=== PATIENT | male | born 1965 | race Caucasian/White ===

== ENCOUNTER 2016-03-22 10:52 | Emergency (ER) | payer OTHER ==
[2016-03-22 10:57] VITALS: RESP 16; TEMP 97.8
--- NOTE | 2016-03-22 11:49 | XR ---
EXAMINATION TYPE: XR lumbosacral spine min 4V DATE OF EXAM: 03/22/2016 11:33 AM CLINICAL HISTORY: pain COMPARISON: NONE TECHNIQUE: Frontal, lateral, and oblique images of the lumbar spine are obtained. FINDINGS: There are 5 lumbar type vertebral bodies identified. The lumbar spine shows satisfactory alignment without evidence of acute fracture or dislocation. Vertebral body heights are within normal limits. Mild to moderate degenerative disc space narrowing and spondylosis at L1-2 and L2-3. The o verlying soft tissue appears unremarkable. IMPRESSION: No acute fracture or dislocation is seen in the lumbar spine.ICD 10 NO FRACTURE, INITIAL EVALUATION
--- NOTE | 2016-03-22 12:05 | ED ---
General Adult HPI - General Chief complaint: Back Pain/Injury Stated complaint: BACK INJURY FROM FALL Time Seen by Provider: 03/22/16 11:01 Source: patient, RN notes reviewed Mode of arrival: wheelchair Limitations: no limitations - History of Present Illness Initial comments: 50-year-old male presenting for lower back pain. Patient states he has a history of chronic back pain but it's been mostly under control for the past several months. He states yesterday he was walking down the stairs with an arm full of wood and slipped on the last stair landing with a jerk on the ground with his left leg. Since this time is back pain has been worsening. He denies any urinary incontinence. He denies any gait changes. He denies any saddle paresthesias. He denies any fall onto his back during this slip accident. - Related Data Home Medications Medication Instructions Recorded Confirmed Diazepam [Valium] 1.25 mg PO TID PRN 03/13/15 03/22/16 Ibuprofen [Advil] 400 mg PO Q6HR PRN 03/13/15 03/22/16 Previous Rx's Medication Instructions Recorded EPINEPHrine [Epipen 2-Mathieu] 0.3 mg IM ONCE PRN #1 pack 09/10/15 Diazepam [Valium] 5 mg PO BID PRN #8 tab 03/22/16 Ibuprofen [Motrin] 800 mg PO Q8HR PRN #21 tab 03/22/16 oxyCODONE-APAP 5-325MG [Percocet 1 tab PO Q6HR PRN #16 tab 03/22/16 5-325 mg] Allergies Allergy/AdvReac Type Severity Reaction Status Date / Time bee pollen Allergy Swelling Verified 03/22/16 11:53 carbamazepine [From Tegretol] Allergy Rash/Hives Verified 03/22/16 11:53 gabapentin [From Neurontin] Allergy Rash/Hives Verified 03/22/16 11:53 morphine Allergy Itching Verified 03/22/16 11:53 phenytoin sodium Allergy Rash/Hives Verified 03/22/16 11:53 [From Dilantin] phenytoin sodium extended Allergy Rash/Hives Verified 03/22/16 11:53 [From Dilantin] Review of Systems ROS Statement: Those systems with pertinent positive or pertinent negative responses have been documented in the HPI. ROS Other: All systems not noted in ROS Statement are negative. Past Medical History Past Medical History: Asthma, GERD/Reflux, Musculoskeletal Disorder, Seizure Disorder Additional Past Medical History / Comment(s): HX HEART MURMUR CHILD. HX SEIZURES IN PAST R/T HEAVY ETOH, DRUG USE, LAST 2006 EST. TOLD HE HAD ASTHMA 2000, NOT ON RX. OCC GERD. CHRONIC NECK, Back Pain; HERNIATED DISC IN NECK, DDD; NT ARMS/HANDS. HX HERPES. History of Any Multi-Drug Resistant Organisms: MRSA Date of last positivie culture/infection: 2005 MDRO Source:: Right hand Past Surgical History: Appendectomy Additional Past Surgical History / Comment(s): FACIAL REPAIR R/T DOG BITE CHILD. 03-21-16 cervical fusion Past Anesthesia/Blood Transfusion Reactions: No Reported Reaction Past Psychological History: No Psychological Hx Reported Smoking Status: Current every day smoker Past Alcohol Use History: None Reported Additional Past Alcohol Use History / Comment(s): has been SMOKING FOR 25 YEARS , UP TO 1 PPD; NO ALCOHOL SINCE 03/10/2006, RECOVERING ALCOHOLIC AND NARCOTIC ADDICTIONS. Past Drug Use History: Marijuana Additional Drug Use History / Comment(s): MEDICAL MARIJUANA FOR PAIN CONTROL, DAILY USE - Past Family History Father Family Medical History: Diabetes Mellitus Mother Family Medical History: No Reported History Additional Family Medical History / Comment(s): TREMORS General Exam - General Exam Comments Initial Comments: General: Awake and Alert. No acute distress. Does not appear acutely ill. Eyes: LEE ANN, EOM intact. No nystagmus. No scleral icterus. HENT: Atraumatic, normocephalic. Mucous membranes moist. Trachea midline. Neck: The neck is supple, there is no tenderness or JVD. Cardiovascular: Regular rate and rhythm. No murmur, rub, or gallop is appreciated. Distal pulses intact. Respiratory: Lungs are clear to auscultation bilaterally. No wheezes, rales, rhonchi. No respiratory distress. Gastrointestinal: Soft, Nontender. No rebound or guarding. Non-distended. No masses or organomegaly noted. No CVA tenderness. Musculoskeletal: Tenderness to the mid lower back on the L5-S1 area. No significant spasm noted. Otherwise, skin exam with no tenderness. Normal ROM. No gross deformity. No strength deficits. Neurological: A&Ox3. CN II-XII grossly intact, There are no obvious motor or sensory deficits. Coordination appears grossly intact. Speech is normal. Normal gait. No saddle paresthesias. Skin: Skin is warm and dry and no rashes or lesions are noted. Psychiatric: Cooperative, appropriate mood & affect, normal judgment. Limitations: no limitations Course Vital Signs 03/22/16 03/22/16 10:54 12:21 Temperature 97.8 F 97.8 F Pulse Rate 78 79 Respiratory 16 16 Rate Blood Pressure 114/67 128/78 O2 Sat by Pulse 100 97 Oximetry Medical Decision Making - Medical Decision Making 50-year-old male presenting for low back pain. Patient with mild tenderness on examination. There are no signs and symptoms of acute cord compression or cauda equina syndrome. He was able to ambulate normally. He was offered pain medications but declines the ED. X-ray imaging was done with no acute process. Discussed close follow-up with Dr. Cartagena or Dr. Zhang who he has seen on an outpatient basis before. Discussed conservative therapy with pain medication as well as muscle relaxers. Recommend heat and stretching. Discussed concerning signs and symptoms for immediate return to ED. Patient is agreeable with plan and discharge home. - Radiology Data Radiology results: report reviewed, image reviewed Disposition Clinical Impression: Low back pain Disposition: HOME SELF-CARE Condition: Stable Instructions: Acute Low Back Pain (ED) Prescriptions: Diazepam [Valium] 5 mg PO BID PRN #8 tab PRN Reason: back spasm Ibuprofen [Motrin] 800 mg PO Q8HR PRN #21 tab PRN Reason: Pain oxyCODONE-APAP 5-325MG [Percocet 5-325 mg] 1 tab PO Q6HR PRN #16 tab PRN Reason: Pain Referrals: Kateryna Ricks MD [Primary Care Provider] - 1-2 days Michael Cartagena MD [STAFF PHYSICIAN] - 1-2 days Devon Zhang DO [Doctor of Osteopathic Medicine] - 1-2 days Time of Disposition: 12:04
[2016-03-22 12:22] VITALS: BP 128/78; PULSE 79
== END 2016-03-22 12:21 | disposition home or self-care (01) ==
LOC: EC 10:52
DX: M54.5 Low back pain (principal); W01.0XXA Fall on same level from slipping, tripping and stumbling without subsequent striking against object, initial encounter; Z79.899 Other long term (current) drug therapy; F17.200 Nicotine dependence, unspecified, uncomplicated; Z86.14 Personal history of Methicillin resistant Staphylococcus aureus infection; Z88.8 Allergy status to other drugs, medicaments and biological substances; Z88.5 Allergy status to narcotic agent
CPT/HCPCS: 72110; 99283

== ENCOUNTER → 2016-04-16 | Outpatient (CLI) | payer OTHER ==
--- NOTE | 2016-04-16 11:04 | MR ---
EXAMINATION TYPE: MR lumbar spine wo con DATE OF EXAM: 04/16/2016 10:28 AM COMPARISON: 10/15/2010 HISTORY: Lumbago w/sciatica lt side TECHNIQUE: T1 and T2 axial and sagittal images of the lumbar spine are submitted. FINDINGS: There is no abnormal signal seen within the visualized spinal cord or paraspinal soft tissu es. At L1-2 there is there is loss of disc space and a small central disc protrusion with mild effacement of thecal sac. Mild hypertrophic change of the facets. Neural foramina remain patent. Finding new fr om previous exam. At L2-3 there is moderate degenerative disc disease. There is a broad-based focal disc protrusion wit h moderate effacement of thecal sac and borderline canal stenosis. Hypertrophy of the facet joints an d ligamentum flavum contribute. Mild bilateral foraminal encroachment. At L3-4 there is no disc herniation or canal stenosis. Mild hypertrophic change of the facet joints. Circumferential disc bulging results in mild foraminal encroachment bilaterally. At L4-5 there is moderate degenerative disc disease with a broad-based right paracentral and lateral disc herniation. This results in moderate effacement of thecal sac and significant right-sided forami nal encroachment with probable nerve root impingement. Mild canal stenosis. At L5-S1 there is degenerative disc disease and annular tear with broad-based central disc bulging gr eater laterally to the right. Mild bilateral foraminal encroachment. IMPRESSION: 1. Broad-based right paracentral disc herniation extends laterally with significant compression of th ecal sac and right-sided foraminal encroachment with probable nerve root impingement. 2. New central disc protrusion at L1-L2 with mild effacement of thecal sac. 3. Multilevel degenerative disc disease and remaining disc bulging or protrusions are stable from the previous exam with foraminal encroachment as discussed above.
== END | disposition home or self-care (01) ==
LOC: RADMRIMAIN 09:38
PROVIDERS: ATTEND Family Medicine
DX: M51.26 Other intervertebral disc displacement, lumbar region (principal); M51.36 Other intervertebral disc degeneration, lumbar region
CPT/HCPCS: 72148

== ENCOUNTER 2016-10-25 10:25 | Emergency (ER) | payer OTHER ==
--- NOTE | 2016-10-25 10:48 | ED ---
General Adult HPI - General Chief complaint: Chest Pain Stated complaint: chest pain Time Seen by Provider: 10/25/16 10:30 Source: patient, RN notes reviewed Mode of arrival: wheelchair Limitations: no limitations - History of Present Illness Initial comments: This is a 50-year-old male who presents emergency Department complaining of left upper back pain. Patient states it occurred about a week and a half ago when he bent over he states he strained the muscles in that area. Patient states ever since then any pain bent his twists or moves that area of his back just medial to the left scapula it hurts. Patient states that someone presses on it it hurts. Patient denies any shortness of breath patient denies any chest pain. Patient states the back pain radiates forward towards his chest but he has no actual chest pain. Patient denies any recent fever chills or cough. Patient denies diabetes hypertension high cholesterol. Patient states he is a smoker. Patient states he does have multiple back issues and smokes marijuana to help with the pain. Patient denies any other symptoms at this time. - Related Data Home Medications Medication Instructions Recorded Confirmed Diazepam [Valium] 1.25 mg PO TID PRN 03/13/15 03/22/16 Ibuprofen [Advil] 400 mg PO Q6HR PRN 03/13/15 03/22/16 Previous Rx's Medication Instructions Recorded EPINEPHrine [Epipen 2-Mathieu] 0.3 mg IM ONCE PRN #1 pack 09/10/15 Diazepam [Valium] 5 mg PO BID PRN #8 tab 03/22/16 Ibuprofen [Motrin] 800 mg PO Q8HR PRN #21 tab 03/22/16 oxyCODONE-APAP 5-325MG [Percocet 1 tab PO Q6HR PRN #16 tab 03/22/16 5-325 mg] Allergies Allergy/AdvReac Type Severity Reaction Status Date / Time bee pollen Allergy Swelling Verified 10/25/16 10:30 carbamazepine [From Tegretol] Allergy Rash/Hives Verified 10/25/16 10:30 gabapentin [From Neurontin] Allergy Rash/Hives Verified 10/25/16 10:30 morphine Allergy Itching Verified 10/25/16 10:30 phenytoin sodium Allergy Rash/Hives Verified 10/25/16 10:30 [From Dilantin] phenytoin sodium extended Allergy Rash/Hives Verified 10/25/16 10:30 [From Dilantin] Review of Systems ROS Statement: Those systems with pertinent positive or pertinent negative responses have been documented in the HPI. ROS Other: All systems not noted in ROS Statement are negative. Past Medical History Past Medical History: Asthma, GERD/Reflux, Musculoskeletal Disorder, Seizure Disorder Additional Past Medical History / Comment(s): HX HEART MURMUR CHILD. HX SEIZURES IN PAST R/T HEAVY ETOH, DRUG USE, LAST 2006 EST. TOLD HE HAD ASTHMA 2000, NOT ON RX. OCC GERD. CHRONIC NECK, Back Pain; HERNIATED DISC IN NECK, DDD; NT ARMS/HANDS. HX HERPES. History of Any Multi-Drug Resistant Organisms: MRSA Date of last positivie culture/infection: 2005 MDRO Source:: Right hand Past Surgical History: Appendectomy Additional Past Surgical History / Comment(s): FACIAL REPAIR R/T DOG BITE CHILD. 18 cervical fusion Past Anesthesia/Blood Transfusion Reactions: No Reported Reaction Past Psychological History: No Psychological Hx Reported Smoking Status: Current every day smoker Past Alcohol Use History: None Reported Past Drug Use History: Marijuana - Past Family History Father Family Medical History: Diabetes Mellitus Mother Family Medical History: No Reported History Additional Family Medical History / Comment(s): TREMORS General Exam - General Exam Comments Initial Comments: GENERAL: Patient is well-developed and well-nourished. Patient is nontoxic and well- hydrated and is in mild distress. ENT: Neck is soft and supple. No significant lymphadenopathy is noted. Oropharynx is clear. Moist mucous membranes. Neck has full range of motion without eliciting any pain. EYES: The sclera were anicteric and conjunctiva were pink and moist. Extraocular movements were intact and pupils were equal round and reactive to light. Eyelids were unremarkable. PULMONARY: Unlabored respirations. Good breath sounds bilaterally. No audible rales rhonchi or wheezing was noted. CARDIOVASCULAR: There is a regular rate and rhythm without any murmurs gallops or rubs. ABDOMEN: Soft and nontender with normal bowel sounds. No palpable organomegaly was noted. There is no palpable pulsatile mass. SKIN: Skin is clear with no lesions or rashes and otherwise unremarkable. NEUROLOGIC: Patient is alert and oriented x3. Cranial nerves II through XII are grossly intact. Motor and sensory are also intact. Normal speech, volume and content. Symmetrical smile. MUSCULOSKELETAL: Normal extremities with adequate strength and full range of motion. No lower extremity swelling or edema. No calf tenderness. Patient has tenderness just medial to the left scapula on palpation. Patient can make the pain come and go with movement LYMPHATICS: No significant lymphadenopathy is note PSYCHIATRIC: Normal psychiatric evaluation. Limitations: no limitations Course Vital Signs 10/25/16 10:27 Temperature 98.1 F Pulse Rate 67 Respiratory 18 Rate Blood Pressure 142/66 O2 Sat by Pulse 99 Oximetry Medical Decision Making - Medical Decision Making EKG shows a normal sinus rhythm at 61 bpm GA interval is on a 58 QRS is 92 QT interval 394 QTC is 398. Patient's EKG is compared to an old EKG there are no acute changes noted. Patient's EKG shows no ST segment elevation or depression or T wave abnormalities. I offered the patient some Toradol or muscle relaxants he does not want to take any medicines while in the hospital at all. Chest x-ray shows no acute abnormality Disposition Clinical Impression: Thoracic myofascial strain Disposition: HOME SELF-CARE Condition: Good Instructions: Thoracic Back Strain (ED) Additional Instructions: Patient's take Motrin 600 mg every 6 hours Referrals: Kateryna Ricks MD [Primary Care Provider] - 1-2 days Time of Disposition: 11:24
--- NOTE | 2016-10-25 11:07 | XR ---
EXAMINATION TYPE: XR chest 2V DATE OF EXAM: 10/25/2016 HISTORY: Difficulty breathing . REFERENCE: Previous study dated 10/11/2014. FINDINGS: The lungs are overinflated but clear. Pleural space are clear. The heart is not enlarged. IMPRESSION: COPD.
[2016-10-25 11:33] VITALS: BP 117/57; PULSE 59; RESP 16; TEMP 98.8
== END 2016-10-25 11:32 | disposition home or self-care (01) ==
LOC: EC 10:25
DX: S29.012A Strain of muscle and tendon of back wall of thorax, initial encounter (principal); G89.29 Other chronic pain; F17.200 Nicotine dependence, unspecified, uncomplicated; Z86.14 Personal history of Methicillin resistant Staphylococcus aureus infection; Z91.030 Bee allergy status; Z88.5 Allergy status to narcotic agent; Z88.8 Allergy status to other drugs, medicaments and biological substances; X50.1XXA Overexertion from prolonged static or awkward postures, initial encounter
CPT/HCPCS: 71020; 99285

== ENCOUNTER → 2017-03-06 | Outpatient (CLI) | payer OTHER ==
--- NOTE | 2017-03-06 11:20 | XR ---
Thoracic spine HISTORY: Pain 3 views of the thoracic spine Postop changes are noted in the cervical spine. There is a mild spinal curvature the upper thoracic s pine. Thoracic vertebral bodies show preserved height and alignment. Multilevel spondylosis. Disc [facility] are maintained. IMPRESSION: Thoracic spondylosis, mild spinal curvature.
--- NOTE | 2017-03-06 12:29 | XR ---
Cervical spine HISTORY: Neck pain 5 views of the cervical spine Patient is status post anterior cervical fusion and discectomy at C5-C7. Spondylosis present at C4-5 with associated loss of disc height. Alignment is anatomic. Suspect foraminal encroachment at C5-6 an d possibly C6-7, C3-4 bilaterally. IMPRESSION: Degenerative disc disease and foraminal encroachment as described.
== END | disposition home or self-care (01) ==
LOC: RADXRMAIN 10:19
PROVIDERS: ATTEND Family Medicine
DX: M50.30 Other cervical disc degeneration, unspecified cervical region (principal); M47.814 Spondylosis without myelopathy or radiculopathy, thoracic region
CPT/HCPCS: 72050; 72070

== ENCOUNTER → 2017-04-24 | Outpatient (CLI) | payer OTHER ==
--- NOTE | 2017-04-24 14:08 | CT ---
EXAMINATION TYPE: CT abdomen pelvis w con DATE OF EXAM: 04/24/2017 COMPARISON: NONE HISTORY: Stomach pain since January CT DLP: 933 mGycm Automated exposure control for dose reduction was used. CONTRAST: CT scan of the abdomen pelvis is performed with IV Contrast, patient injected with 100 mL of Omnipaqu e 300. FINDINGS- LUNG BASES- No significant abnormality is appreciated. LIVER/GB- No gross abnormality is appreciated. PANCREAS- No gross abnormality is seen. SPLEEN- No gross abnormality is seen. ADRENALS- No gross abnormality is seen. KIDNEYS/BLADDER- no hydronephrosis nephrolithiasis or renal mass. BOWEL- no bowel dilatation. There is a somewhat low-lying position of the small bowel within the low er pelvis. Correlate for enterocele. LYMPH NODES- No greater than 1cm abdominal or pelvic lymph nodes are appreciated. OSSEOUS STRUCTURES-hypertrophic changes of the spine noted. There is disc bulging at L4-L5 and facet arthropathy which likely results in canal stenosis and could be correlated with MRI. OTHER- aorta of normal caliber. IMPRESSION- 1. Small bowel somewhat low-lying in position within the pelvis can occasionally be associated with a n enterocele. Correlate clinically. No evidence of obstruction.
== END | disposition home or self-care (01) ==
LOC: RADCTMAIN 11:58
PROVIDERS: ATTEND Family Medicine
DX: K46.9 Unspecified abdominal hernia without obstruction or gangrene (principal); R53.83 Other fatigue
CPT/HCPCS: 74177; Q9967

== ENCOUNTER → 2017-11-12 | Outpatient (CLI) | payer OTHER ==
--- NOTE | 2017-11-12 16:33 | US ---
EXAMINATION TYPE: US abdomen complete DATE OF EXAM: 11/12/2017 COMPARISON: NONE CLINICAL HISTORY: R19.00 ABD WALL BULGE,R10.11 RUQ PAIN. Technique: Multiple sonographic images of the abdomen are obtained. FINDINGS: [employer] Technician notes: During gardening pt felt a bulge in epigastric area but not now, I performed valsa lva maneuver over pt area of concern. No bulging seen. The area was over his GB. EXAM MEASUREMENTS: Liver Length: 15.1 cm Gallbladder Wall: 0.1 cm CBD: 0.2 cm Spleen: 8.1 cm Right Kidney: 10.9 x 4.0 x 4.9 cm Left Kidney: 10.3 x 4.4 x 5.5 cm Pancreas: Obscured by bowel gas Liver: wnl Gallbladder: wnl Evidence for sonographic Kimball's sign: No CBD: wnl Spleen: wnl Right Kidney: wnl Left Kidney: wnl Upper IVC: wnl Abd Aorta: wnl IMPRESSION: 1. Suboptimal visualization of the pancreas. Otherwise, unremarkable sonographic examination of the a bdomen. 2. Additional scanning was performed at the right paramedian upper abdomen at the site of patient's r eported bulge. Valsalva was utilized and shows no discrete abdominal wall hernia. Further clinical co rrelation recommended.
== END | disposition home or self-care (01) ==
LOC: RADUSWWP 10:52
PROVIDERS: ATTEND Family Medicine
DX: R19.00 Intra-abdominal and pelvic swelling, mass and lump, unspecified site (principal); R10.11 Right upper quadrant pain
CPT/HCPCS: 76700

== ENCOUNTER → 2018-03-05 | Outpatient (CLI) | payer OTHER ==
--- NOTE | 2018-03-05 11:53 | MR ---
EXAMINATION TYPE: MR brain wo con DATE OF EXAM: 03/05/2018 COMPARISON: None HISTORY: Dizziness and giddiness / Headache CONTRAST: Performed utilizing 0 mL intravenous Gadavist gadolinium contrast. TECHNIQUE: Multiplanar, multiecho imaging on a 3.0 Lila magnet is performed through the brain. Stud y is performed within 24 hours of arrival to the hospital. The craniovertebral junction is normal. The pituitary is normal. Diffusion-weighted imaging is performed. No abnormal hyperintensity is present to suggest an acute i ntracranial infarct or acute ischemic change. There are 3 hyperintensities on inversion recovery weighted sequences within the centrum semiovale me asuring approximately 0.4 cm each. Couple of additional carson radiata hyperintensities are present. Differential diagnosis could include microvascular ischemic change. Multiple sclerosis is not exclude d. Differential diagnosis could also include gliosis from migraine headaches, vasculitis, Lyme diseas e. Ventricles and sulci are appropriate for the patient age. There is a mucous retention cyst within the left maxillary sinus. Tiny mucous thickening along the ri ght posterior lateral maxillary sinus may be present. Small amount of fluid is in the right mastoid a ir cells. Mild mucosal thickening is within ethmoid air cells and right frontal sinus. IMPRESSIONS: 1. Nonspecific punctate white matter changes, differential diagnosis is discussed above.
--- NOTE | 2018-03-05 15:01 | US ---
EXAMINATION TYPE: US carotid duplex BILAT DATE OF EXAM: 03/05/2018 COMPARISON: NONE CLINICAL HISTORY: R42 Dizziness and giddiness / R51 Headache. dizziness, no HTN, no hx of tia EXAM MEASUREMENTS: RIGHT: Peak Systolic Velocity (PSV) cm/sec ----- Right CCA: 83.4 ----- Right ICA: 65.8 ----- Right ECA: 71.3 ICA/CCA ratio: 0.8 RIGHT: End Diastole cm/sec ----- Right CCA: 21.9 ----- Right ICA: 23.0 ----- Right ECA: 15.3 LEFT: Peak Systolic Velocity (PSV) cm/sec ----- Left CCA: 117.3 ----- Left ICA: 67.6 ----- Left ECA: 97.8 ICA/CCA ratio: 0.6 LEFT: End Diastole cm/sec ----- Left CCA: 31.8 ----- Left ICA: 22.3 ----- Left ECA: 15.0 VERTEBRALS (direction of flow): Right Vertebral: Antegrade Left Vertebral: Antegrade Rhythm: Normal No elevated velocities, significant stenosis, plaque or wall thickening. IMPRESSION: 1. No significant flow-limiting stenosis Criteria for Assigning % of Stenosis / Diameter reduction (Estimation based on the indirect measurements of the internal carotid artery velocities (ICA PSV). 1. Normal (no stenosis)=ICA PSV < 125 cm/s: ratio < 2.0: ICA EDV<40 cm/s. 2. Less than 50% stenosis=ICA PSV < 125 cm/s: ratio < 2.0: ICA EDV<40 cm/s. 3. 50 to 69% stenosis=ICA PSV of 125 to 230 cm/s: ration 2.0 ? 4.0: ICA EDV 40-100 cm/s. 4. Greater than 70% stenosis to near occlusion= ICA PSV > 230 cm/s: ratio > 4.0: ICA EDV > 100 cm/s. 5. Near occlusion= ICA PSV velocities may be low or undetectable: variable ratio and ICA EDV. 6. Total occlusion=unable to detect flow.
== END | disposition home or self-care (01) ==
LOC: RADMRIMAIN 06:08
PROVIDERS: ATTEND Family Medicine
DX: R90.89 Other abnormal findings on diagnostic imaging of central nervous system (principal); R42 Dizziness and giddiness; R51 Headache
CPT/HCPCS: 70551; 93880

== ENCOUNTER → 2018-05-13 | Outpatient (CLI) | payer OTHER ==
--- NOTE | 2018-05-13 08:36 | CT ---
EXAMINATION TYPE: CT sinus wo con DATE OF EXAM: 05/13/2018 COMPARISON: HISTORY: 52-year-old male Chronic sinusitis, left side worse CT DLP: 615.9 mGycm Automated exposure control for dose reduction was used. TECHNIQUE: Noncontrast axial views of the paranasal sinuses were obtained. Coronal reconstructions pe rformed. FINDINGS: PARANASAL SINUSES: There is a large 2.7 cm lobulated polyp or mucosal retention cyst along the floor of the maxillary si nus. Scattered trace mucosal thickening within the bilateral maxillary sinuses are otherwise seen. Scattered mild mucosal thickening bilateral ethmoid air cells and right sphenoid sinus as well as the right frontal sinus. There is no air-fluid level. Reactive javi- osteogenesis is not seen. There is no destruction of the osseous kellogg of the paranasal sinuses. THE NASAL CAVITY: The osteomeatal complexes are patent. The nasal septum is not significantly deviated. The imaged brain and orbits are normal in appearance. Visualized mastoid air cells and middle ear cavities are well pneumatized. Reformatted images confirm above findings. IMPRESSION: 1. Mild chronic maxillary and ethmoid sinus disease. Additional mild mucosal thickening involves the right frontal and right sphenoid sinuses. 2. A 2.7 cm lobulated polyp or mucosal retention cyst along the floor of the left maxillary sinus.
== END | disposition home or self-care (01) ==
LOC: RADCTMAIN 07:58
PROVIDERS: ATTEND Otolaryngology
DX: J33.8 Other polyp of sinus (principal); J34.89 Other specified disorders of nose and nasal sinuses; J32.9 Chronic sinusitis, unspecified
CPT/HCPCS: 70486

== ENCOUNTER 2023-09-13 11:10 | Observation (INO) | payer OTHER ==
[2023-09-13 11:46] LABS: Basophils % (A) 1 %; Eosinophils # (A) 0.2 k/uL (0-0.7); Eosinophils % (A) 5 %; HCT 46.4 % (39.0-53.0); HGB 15.1 gm/dL (13.0-17.5); Lymphocytes # (A) 0.9 k/uL (1.0-4.8); Lymphocytes % (A) 30 %; MCH 33.5 pg (25.0-35.0); MCHC 32.5 g/dL (31.0-37.0); MCV 102.9 fL (80.0-100.0); Mean Platelet Volume 13.9; Monocytes # (A) 0.2 k/uL (0-1.0); Monocytes % (A) 5 %; Neutrophils # (A) 1.8 k/uL (1.3-7.7); Neutrophils % (A) 58 %; Platelet Count 119 k/uL (150-450); RBC 4.51 m/uL (4.30-5.90); RDW 11.8 % (11.5-15.5); WBC 3.1 k/uL (3.8-10.6)
[2023-09-13 11:58] LABS: INR 1.2 (<1.2); Partial Thromboplastin Time 27.2 sec (22.0-30.0)
[2023-09-13 11:59] LABS: ALT 15 U/L (4-49); AST 23 U/L (17-59); African American GFR (CKD) >90 (>60 ml/min/1.73 sqM); Albumin 4.6 g/dL (3.5-5.0); Alkaline Phosphatase 70 U/L (38-126); Anion Gap 8 mmol/L; Blood Urea Nitrogen 12 mg/dL (9-20); Calcium 9.6 mg/dL (8.4-10.2); Carbon Dioxide 26 mmol/L (22-30); Chloride 103 mmol/L (98-107); Glucose 175 mg/dL (74-99); Magnesium 1.8 mg/dL (1.6-2.3); Non-African American GFR(CKD) >90 (>60 ml/min/1.73 sqM); Potassium 4.2 mmol/L (3.5-5.1); Sodium 137 mmol/L (137-145); Total Bilirubin 1.2 mg/dL (0.2-1.3); Total Protein 6.8 g/dL (6.3-8.2)
--- NOTE | 2023-09-13 12:22 | XR ---
EXAMINATION TYPE: XR chest 2V DATE OF EXAM: 09/13/2023 COMPARISON: 02/21/2018 HISTORY: Chest pain TECHNIQUE: Frontal and lateral views of the chest are obtained. FINDINGS: There is no focal air space opacity, pleural effusion, or pneumothorax seen. The cardiac silhouette size is within normal limits. The osseous structures are intact. IMPRESSION: No acute cardiopulmonary process.
--- NOTE | 2023-09-13 12:32 | ED ---
General Adult HPI - General Chief complaint: Chest Pain Stated complaint: Chest Pains Time Seen by Provider: 09/13/23 12:14 Source: patient, family, RN notes reviewed Mode of arrival: wheelchair Limitations: no limitations - History of Present Illness Initial comments: Patient is a 57-year-old male present to the emergency department with concerns with chest discomfort. Onset of symptoms was 2 to 3 days ago. Patient is having chest tightness with associated mild dyspnea and nausea. Patient has also had some lightheadedness. No history of similar symptoms previously. Discomfort is mid to lower sternal. Discomfort at this time is mild. - Related Data Home Medications Medication Instructions Recorded Confirmed Acetaminophen [Tylenol Extra 500 mg PO Q6HR PRN 02/21/18 02/21/18 Strength] Ranitidine HCl [Zantac] 150 mg PO BID PRN 02/21/18 02/21/18 Allergies Allergy/AdvReac Type Severity Reaction Status Date / Time bee pollen Allergy Swelling Verified 09/13/23 11:21 carbamazepine [From Tegretol] Allergy Rash/Hives Verified 09/13/23 11:21 gabapentin [From Neurontin] Allergy Rash/Hives Verified 09/13/23 11:21 morphine Allergy Itching Verified 09/13/23 11:21 phenytoin sodium Allergy Rash/Hives Verified 09/13/23 11:21 [From Dilantin] phenytoin sodium extended Allergy Rash/Hives Verified 09/13/23 11:21 [From Dilantin] Review of Systems ROS Statement: Those systems with pertinent positive or pertinent negative responses have been documented in the HPI. ROS Other: All systems not noted in ROS Statement are negative. Constitutional: Denies: fever Eyes: Denies: eye pain ENT: Denies: ear pain Respiratory: Denies: cough Cardiovascular: Reports: as per HPI, chest pain Endocrine: Reports: fatigue Gastrointestinal: Denies: abdominal pain Musculoskeletal: Denies: back pain Past Medical History Past Medical History: Asthma, GERD/Reflux, Musculoskeletal Disorder, Seizure Disorder Additional Past Medical History / Comment(s): HX HEART MURMUR CHILD. HX SEIZURES IN PAST R/T HEAVY ETOH, DRUG USE, LAST 2006 EST. TOLD HE HAD ASTHMA 2000, NOT ON RX. OCC GERD. CHRONIC NECK, Back Pain; HERNIATED DISC IN NECK, DDD; NT ARMS/HANDS. HX HERPES. History of Any Multi-Drug Resistant Organisms: MRSA Date of last positivie culture/infection: 2005 MDRO Source:: Right hand Past Surgical History: Appendectomy Additional Past Surgical History / Comment(s): FACIAL REPAIR R/T DOG BITE CHILD. 03-21-15 cervical fusion Past Anesthesia/Blood Transfusion Reactions: No Reported Reaction Past Psychological History: No Psychological Hx Reported Smoking Status: Current every day smoker Past Alcohol Use History: None Reported Past Drug Use History: Marijuana - Past Family History Father Family Medical History: Diabetes Mellitus Mother Family Medical History: No Reported History Additional Family Medical History / Comment(s): . General Exam Limitations: no limitations General appearance: alert, in no apparent distress Head exam: Present: normocephalic Eye exam: Present: normal appearance Neck exam: Present: normal inspection Respiratory exam: Present: normal lung sounds bilaterally Cardiovascular Exam: Present: regular rate, normal rhythm Expanded Peripheral pulses: 2+: Radial (R), Radial (L), Dorsalis Pedis (R), Dorsalis Pedis (L) GI/Abdominal exam: Present: soft. Absent: tenderness Extremities exam: Present: normal inspection. Absent: pedal edema, calf tenderness Neurological exam: Present: alert Psychiatric exam: Present: normal affect, normal mood Skin exam: Present: normal color Course Vital Signs 09/13/23 11:17 Temperature 97.3 F L Pulse Rate 93 Respiratory 18 Rate Blood Pressure 136/70 O2 Sat by Pulse 100 Oximetry EKG Findings - EKG Results: EKG: interpreted by ERMD, sinus rhythm, normal axis, normal QRS, normal ST/T Medical Decision Making - Medical Decision Making Was pt. sent in by a medical professional or institution (, PA, QUALITY CONTROL INSPECTOR, urgent care, hospital, or detention...) When possible be specific @ -No Did you speak to anyone other than the patient for history (EMS, parent, family, police, friend...)? What history was obtained from this source @ -No Did you review nursing and triage notes (agree or disagree)? Why? @ -I reviewed and agree with nursing and triage notes Were old charts reviewed (outside hosp., previous admission, EMS record, old EKG, old radiological studies, urgent care reports/EKG's, detention records)? Report findings @ -No old charts were reviewed Differential Diagnosis (chest pain, altered mental status, abdominal pain women, abdominal pain men, vaginal bleeding, weakness, fever, dyspnea, syncope, headache, dizziness, GI bleed, back pain, seizure, CVA, palpatations, mental health, musculoskeletal)? @ -Differential Chest Pain: Stable Angina, Unstable Angina, STEMI, NSTEMI Aortic Dissection, Pneumothorax, Musculoskeletal, Esophageal Spasm GERD, Cholecystitis, Pancreatitis, Zoster, this is not meant to be an all-inclusive list. EKG interpreted by me (3pts min.). @ -As above X-rays interpreted by me (1pt min.). @ -Chest x-ray shows no acute process CT interpreted by me (1pt min.). @ -None done U/S interpreted by me (1pt. min.). @ -None done What testing was considered but not performed or refused? (CT, X-rays, U/S, labs)? Why? @ -None What meds were considered but not given or refused? Why? @ -None Did you discuss the management of the patient with other professionals (professionals i.e. , PA, QUALITY CONTROL INSPECTOR, lab, RT, psych nurse, social media campaign manager, restaurant hourly manager, teacher, quality officer, employment case manager)? Give summary @ -Case discussed with Dr. Valera who will admit covering Dr. Elaine Was smoking cessation discussed for >3mins.? @ -No Was critical care preformed (if so, how long)? @ -No Were there social determinants of health that impacted care today? How? (Homelessness, low income, unemployed, alcoholism, drug addiction, transportation, low edu. Level, literacy, decrease access to med. care, senior living, rehab)? @ -No Was there de-escalation of care discussed even if they declined (Discuss DNR or withdrawal of care, Hospice)? DNR status @ -No What co-morbidities impacted this encounter? (DM, HTN, Smoking, COPD, CAD, Canc er, CVA, ARF, Chemo, Hep., AIDS, mental health diagnosis, sleep apnea, morbid obesity)? @ -None Was patient admitted / discharged? Hospital course, mention meds given and route, prescriptions, significant lab abnormalities, going to OR and other pertinent info. @ -Patient presents with chest discomfort. Patient and family updated on results and plan. Patient reevaluated with only minimal symptoms. Patient does have mild bump in lipase. Patient will be admitted with cardiac consult. Lipase will be rechecked. Undiagnosed new problem with uncertain prognosis? @ -No Drug Therapy requiring intensive monitoring for toxicity (Heparin, Nitro, Insulin, Cardizem)? @ -No Were any procedures done? @ -No Diagnosis/symptom? @ -Chest pain Acute, or Chronic, or Acute on Chronic? @ -Acute Uncomplicated (without systemic symptoms) or Complicated (systemic symptoms)? @ -Default Side effects of treatment? @ -No Exacerbation, Progression, or Severe Exacerbation? @ -No Poses a threat to life or bodily function? How? (Chest pain, [place], [place], pneumonia, PE, COPD, DKA, ARF, appy, cholecystitis, CVA, Diverticulitis, Homicidal, Suicidal, threat to staff... and all critical care pts) @ -Threat to cardiac function - Lab Data Result diagrams: 09/13/23 11:31 09/13/23 11:31 Lab Results 09/13/23 09/13/23 09/13/23 Range/Units 11:31 11:31 11:31 WBC 3.1 L (3.8-10.6) k/uL RBC 4.51 (4.30-5.90) m/uL Hgb 15.1 (13.0-17.5) gm/dL Hct 46.4 (39.0-53.0) % MCV 102.9 H (80.0-100.0) fL MCH 33.5 (25.0-35.0) pg MCHC 32.5 (31.0-37.0) g/dL RDW 11.8 (11.5-15.5) % Plt Count 119 L (150-450) k/uL MPV 13.9 Neutrophils % 58 % Lymphocytes % 30 % Monocytes % 5 % Eosinophils % 5 % Basophils % 1 % Neutrophils # 1.8 (1.3-7.7) k/uL Lymphocytes # 0.9 L (1.0-4.8) k/uL Monocytes # 0.2 (0-1.0) k/uL Eosinophils # 0.2 (0-0.7) k/uL Basophils # 0.0 (0-0.2) k/uL PT 13.0 H (10.0-12.5) sec INR 1.2 H (<1.2) APTT 27.2 (22.0-30.0) sec Sodium 137 (137-145) mmol/L Potassium 4.2 (3.5-5.1) mmol/L Chloride 103 (98-107) mmol/L Carbon Dioxide 26 (22-30) mmol/L Anion Gap 8 mmol/L BUN 12 (9-20) mg/dL Creatinine 0.76 (0.66-1.25) mg/dL Est GFR (CKD-EPI)AfAm >90 (>60 ml/min/1.73 sqM) Est GFR (CKD-EPI)NonAf >90 (>60 ml/min/1.73 sqM) Glucose 175 H (74-99) mg/dL Calcium 9.6 (8.4-10.2) mg/dL Magnesium 1.8 (1.6-2.3) mg/dL Total Bilirubin 1.2 (0.2-1.3) mg/dL AST 23 (17-59) U/L ALT 15 (4-49) U/L Alkaline Phosphatase 70 (38-126) U/L Troponin I (0.000-0.034) ng/mL Total Protein 6.8 (6.3-8.2) g/dL Albumin 4.6 (3.5-5.0) g/dL Amylase (30-110) U/L Lipase (23-300) U/L 09/13/23 09/13/23 Range/Units 11:31 11:39 WBC (3.8-10.6) k/uL RBC (4.30-5.90) m/uL Hgb (13.0-17.5) gm/dL Hct (39.0-53.0) % MCV (80.0-100.0) fL MCH (25.0-35.0) pg MCHC (31.0-37.0) g/dL RDW (11.5-15.5) % Plt Count (150-450) k/uL MPV Neutrophils % % Lymphocytes % % Monocytes % % Eosinophils % % Basophils % % Neutrophils # (1.3-7.7) k/uL Lymphocytes # (1.0-4.8) k/uL Monocytes # (0-1.0) k/uL Eosinophils # (0-0.7) k/uL Basophils # (0-0.2) k/uL PT (10.0-12.5) sec INR (<1.2) APTT (22.0-30.0) sec Sodium (137-145) mmol/L Potassium (3.5-5.1) mmol/L Chloride (98-107) mmol/L Carbon Dioxide (22-30) mmol/L Anion Gap mmol/L BUN (9-20) mg/dL Creatinine (0.66-1.25) mg/dL Est GFR (CKD-EPI)AfAm (>60 ml/min/1.73 sqM) Est GFR (CKD-EPI)NonAf (>60 ml/min/1.73 sqM) Glucose (74-99) mg/dL Calcium (8.4-10.2) mg/dL Magnesium (1.6-2.3) mg/dL Total Bilirubin (0.2-1.3) mg/dL AST (17-59) U/L ALT (4-49) U/L Alkaline Phosphatase (38-126) U/L Troponin I <0.012 (0.000-0.034) ng/mL Total Protein (6.3-8.2) g/dL Albumin (3.5-5.0) g/dL Amylase 89 (30-110) U/L Lipase 832 H (23-300) U/L Disposition Clinical Impression: Chest pain Disposition: ADMITTED IP TO THIS HOSP Is patient prescribed a controlled substance at d/c from ED?: No Referrals: Kateryna Ricks MD [Primary Care Provider] - 1-2 days Time of Disposition: 14:29
[2023-09-13 13:24] LABS: Amylase 89 U/L (30-110); Lipase 832 U/L (23-300)
[2023-09-13] MEDS ORDERED: NITROGLYCERIN SL TABS 0.4 MG TAB SUBLINGUAL PRN (14:29)
[2023-09-13] MEDS ORDERED: IOPAMIDOL CONTRAST (ORAL USE) VIAL PO PRN (14:54)
[2023-09-13] MEDS: NITROGLYCERIN OINT 1 INCH/GM PACKET TOPICAL SCH (15:13)
[2023-09-13] MEDS: PANTOPRAZOLE 40 MG/10 ML VIAL IVP SCH (15:14)
[2023-09-13] MEDS: ASPIRIN 81 MG PO STA (15:14)
--- NOTE | 2023-09-13 18:09 | CT ---
EXAMINATION TYPE: CT abdomen pelvis wo con CT DLP: 320.3 mGycm, Automated exposure control for dose reduction was used. DATE OF EXAM: 09/13/2023 5:47 PM COMPARISON: CT abdomen pelvis most recent from 04/24/2017 CLINICAL INDICATION:Male, 57 years old with history of pancreatitis; pancreatitis TECHNIQUE: Axial CT abdomen pelvis wo con;Sagittal and coronal reformats were created on a separate workstation. Contrast used: mL of , (none if empty) Oral contrast used: with Oral Contrast (none if empty) FINDINGS: LOWER CHEST: Unremarkable ABDOMEN LIVER: Unremarkable GALLBLADDER AND BILE DUCTS: Unremarkable. PANCREAS: Limited noncontrast exam. No significant fat stranding changes around the pancreatic parenc hyma SPLEEN: Unremarkable. ADRENAL GLANDS: Unremarkable. KIDNEYS AND URETERS: No evidence of hydronephrosis or renal calculus. The ureters are unremarkable. PELVIS BLADDER: Unremarkable REPRODUCTIVE: Unremarkable. ABDOMEN & PELVIS STOMACH AND BOWEL: No evidence of bowel obstruction. Oral contrast extends throughout the majority of the small bowel. PERITONEUM/RETROPERITONEUM: No evidence of pneumoperitoneum or free fluid. VASCULATURE: Mild atherosclerotic calcifications are present throughout the abdominal aorta and its b ranches. No evidence of aortic aneurysm. MUSCULOSKELETAL: No acute osseous abnormalities LYMPH NODES: No gross evidence for lymphadenopathy. SOFT TISSUE/ABDOMINAL WALL: Unremarkable IMPRESSION: Limited exam without IV contrast. Pancreas is rather unremarkable with its unenhanced appearance. Cor relate with serum markers. No obvious acute abdominal process.
[2023-09-13] MEDS: diazePAM 5 MG TAB PO PRN (19:01)
[2023-09-13] MEDS: traMADol 50 MG TAB PO PRN (19:01)
[2023-09-13 21:02] LABS: Amphetamine Screen,Urine Not Detected (NotDetected); Barbiturate Screen,Urine Not Detected (NotDetected); Benzodiazepines Screen,Urine Detected (NotDetected); Cocaine Screen,Urine Not Detected (NotDetected); Methadone Screen, Urine Not Detected (NotDetected); Opiate Screen,Urine Not Detected (NotDetected); Oxycodone Screen, Urine Not Detected (NotDetected); Phencyclidine Screen,Urine Not Detected (NotDetected); Tricyclic Antidepressant,Urine Not Detected (NotDetected); Urn Cannabinoid Scrn Not Detected (NotDetected)
--- NOTE | 2023-09-14 01:11 | HP ---
HISTORY AND PHYSICAL CHIEF COMPLAINT: Epigastric and chest pain. HISTORY OF PRESENT ILLNESS: This is a 57-year-old gentleman with a past medical history of multiple medical problems including asthma, seizure disorder, history of EtOH. He was complaining of abdominal pain, epigastric pain as well as chest tightness on and off for the last couple of days for several times. The patient came to [facility], admitted for further evaluation and treatment. Lipase slightly elevated, troponins are normal. EKG did not show any acute changes. The patient did have a stress test a few years ago according to him. No fever, rigors, or chills. PAST MEDICAL HISTORY: History of asthma, GERD, seizure disorder, EtOH per chart. Rest of the history and rest of the chart is also noted. HOME MEDICATIONS: Zantac. ALLERGIES: Multiple allergies include bee, pollen. FAMILY HISTORY: History of coronary artery disease in father in the 50s. SOCIAL HISTORY: Smoking, recovering alcoholic and narcotic addiction. REVIEW OF SYSTEMS: A 14-point review is negative except as mentioned. PHYSICAL EXAMINATION: VITAL SIGNS: Pulse is 93, blood pressure 130/70, respirations 18. HEENT: Conjunctivae normal. NECK: No jugular venous distention. RESPIRATIONS: Diminished at the bases. ABDOMEN: Soft, mild diffuse tenderness in the epigastrium. No guarding, no mass palpable, scaphoid. LEGS: No edema, no swelling. NERVOUS SYSTEM: Nonfocal. SKIN: No ulcer, rash, bleeding. JOINTS: No active deforming arthropathy. LABS: WBC 3.2. Rest of the labs are noted. ASSESSMENT: 1. Epigastric and chest pain, rule out coronary artery disease. 2. Possible acute pancreatitis. 3. Remote history of EtOH apparently. 4. Thrombocytopenia. 5. Leukopenia. 6. Asthma. 7. DJD. 8. History of seizure disorder. 9. History of MRSA. RECOMMENDATIONS: This is a 57-year-old gentleman who presented with multiple complex medical issues, we will monitor the patient closely. We will rule out possibility of myocardial infarction, cardiology consultation, possibly stress test. I would also follow with amylase and lipase for possible pancreatitis. CAT scan of the abdomen and pelvis will be also ordered. D-dimer also will be checked. Prognosis guarded because of multiple complex medical issues, further recommendations to follow, see orders for details. Will check ETOH levels also. MMODL / IJN: [id number] /
[2023-09-14 03:14] LABS: ALT 13 U/L (4-49); AST 19 U/L (17-59); African American GFR (CKD) >90 (>60 ml/min/1.73 sqM); Albumin 3.6 g/dL (3.5-5.0); Albumin/Globulin Ratio 1.8; Alkaline Phosphatase 72 U/L (38-126); Amylase 36 U/L (30-110); Anion Gap 3 mmol/L; Blood Urea Nitrogen 15 mg/dL (9-20); Calcium 9.2 mg/dL (8.4-10.2); Carbon Dioxide 28 mmol/L (22-30); Chloride 105 mmol/L (98-107); Glucose 84 mg/dL (74-99); Lipase 139 U/L (23-300); Non-African American GFR(CKD) >90 (>60 ml/min/1.73 sqM); Potassium 4.2 mmol/L (3.5-5.1); Sodium 136 mmol/L (137-145); Total Protein 5.6 g/dL (6.3-8.2)
[2023-09-14 03:44] LABS: HGB 13.7 gm/dL (13.0-17.5); MCHC 33.4 g/dL (31.0-37.0); MCV 101.9 fL (80.0-100.0); Mean Platelet Volume 14.1; Platelet Count 109 k/uL (150-450); RBC 4.02 m/uL (4.30-5.90); WBC 4.7 k/uL (3.8-10.6)
[2023-09-14 04:02] LABS: RBC Morphology Normal
[2023-09-14 08:33] VITALS: PULSE 58
[2023-09-14] MEDS: ASPIRIN 81 MG PO SCH (08:46)
[2023-09-14] MEDS ORDERED: ASPIRIN 325 MG TAB PO SCH (09:00)
[2023-09-14 09:01] LABS: Chol/HDL Ratio 2.02 Ratio; LDL Cholesterol,Calculated 36.7 mg/dL (0.0-131.0)
--- NOTE | 2023-09-14 10:21 | P.CRDCN ---
History of Present Illness History of present illness: HISTORY OF PRESENT ILLNESS: This is a 57-year-old male with a past medical history significant for pancreatitis, alcohol abuse, drug abuse, nicotine dependence, marijuana use, and anxiety. Patient follows in the office with Dr. Zhong. We have been asked to see the patient in consultation for chest pain. Patient examined at the bedside. Patient states yesterday he was sitting at home eating breakfast. He states he had a few bites of cereal and then began to feel nauseated. He reports having some mild chest discomfort. He denies any dizziness or lightheadedness. He did report having back pain which he continues to have this morning. He denies having any episodes of vomiting or diarrhea. Patient was found to have elevated lipase admission of 832. He does report having episodes of pancreatitis in the past. DIAGNOSTICS: - EKG reveals sinus mechanism with no signs of acute ischemia - Chest xray negative for acute process - Laboratory data: D-dimer 0.17. Lipase 832. Troponin negative x 3 - Most recent echocardiogram obtained in February 2022 revealed ejection fraction 50%, mild MR, mild TR - Patient underwent stress testing in April 2022 which was negative for ischemia REVIEW OF SYSTEMS: At the time of my exam: CONSTITUTIONAL: Denies fever or chills. HEENT: Denies blurred vision, vision changes, or eye pain. Denies hemoptysis CARDIOVASCULAR: Denies chest pain. Denies orthopnea. Denies PND. Denies palpitations RESPIRATORY: Denies shortness of breath. GASTROINTESTINAL: Denies abdominal pain. Denies nausea or vomiting. HEMATOLOGIC: Denies bleeding disorders. GENITOURINARY: Denies any blood in urine. SKIN: Denies pruitis. Denies rash. PHYSICAL EXAM: VITAL SIGNS: Reviewed. GENERAL: Well-developed in no acute distress. HEENT: Head is normocephalic. Pupils are equal, round. Sclerae anicteric. Mucous membranes of the mouth are moist. Neck supple. No JVD or thyromegaly LUNGS: Respirations even and unlabored. Lungs essentially clear to auscultation bilaterally. HEART: Regular rate and rhythm. S1 and S2 heard. ABDOMEN: Soft. Nondistended. Nontender. EXTREMITIES: Normal range of motion. No clubbing or cyanosis. Peripheral pulses intact. No lower extremity edema NEUROLOGIC: Awake and alert. Oriented x 3. ASSESSMENT: Chest pain, atypical, appears to be GI related, troponin negative x 3 Elevated lipase, possible mild pancreatitis History of pancreatitis History of alcohol abuse History of drug abuse Nicotine dependence Marijuana use Anxiety PLAN: An acute coronary event has been ruled out Obtain 2D echo to assess cardiac structure and function If echo is unremarkable, no further inpatient recommendations from a cardiac standpoint Patient to follow-up postdischarge with Dr. Zhong Nurse practitioner note has been reviewed by physician. Signing provider agrees with the documented findings, assessment, and plan of care documented by [employer] as a scribe. Past Medical History Past Medical History: Asthma, GERD/Reflux, Musculoskeletal Disorder, Seizure Disorder Additional Past Medical History / Comment(s): HX HEART MURMUR CHILD. HX SEIZURES last in 2003 IN PAST R/T HEAVY ETOH, DRUG USE, TOLD HE HAD ASTHMA 2000, NOT ON RX. OCC GERD. CHRONIC NECK, Back Pain; HERNIATED DISC IN NECK, DDD; NT ARMS/HANDS. Pancreatitis 2020. HX HERPES. History of Any Multi-Drug Resistant Organisms: MRSA Date of last positivie culture/infection: 2005 MDRO Source:: Right hand Past Surgical History: Appendectomy Additional Past Surgical History / Comment(s): FACIAL REPAIR R/T DOG BITE CHILD. 2-3-16 cervical fusion Past Anesthesia/Blood Transfusion Reactions: No Reported Reaction Past Psychological History: Anxiety Smoking Status: Current every day smoker Past Alcohol Use History: None Reported Additional Past Alcohol Use History / Comment(s): has been SMOKING FOR 25 YEARS, UP TO 1 PPD; NO ALCOHOL SINCE 03/10/2006, RECOVERING ALCOHOLIC AND NARCOTIC ADDICTIONS. Past Drug Use History: Marijuana Additional Drug Use History / Comment(s): MEDICAL MARIJUANA FOR PAIN CONTROL, DAILY USE - Past Family History Father Family Medical History: Cancer, Diabetes Mellitus Additional Family Medical History / Comment(s): colon ca Mother Family Medical History: Myocardial Infarction ([place]) Additional Family Medical History / Comment(s): . Medications and Allergies Home Medications Medication Instructions Recorded Confirmed Type diazePAM [Valium] 5 mg PO Q8H PRN 09/13/23 09/13/23 History traMADol HCL 50 mg PO TID PRN 09/13/23 09/13/23 History Allergies Allergy/AdvReac Type Severity Reaction Status Date / Time apple Allergy Unknown Verified 09/13/23 19:04 bee pollen Allergy Swelling Verified 09/13/23 15:05 carbamazepine [From Tegretol] Allergy Rash/Hives Verified 09/13/23 15:05 gabapentin [From Neurontin] Allergy Rash/Hives Verified 09/13/23 15:05 grape Allergy Unknown Verified 09/13/23 19:04 mayonnaise Allergy Unknown Verified 09/13/23 19:04 Milk Containing Products Allergy Unknown Verified 09/13/23 19:04 (Dairy) morphine Allergy Itching Verified 09/13/23 15:05 phenytoin sodium Allergy Rash/Hives Verified 09/13/23 15:05 [From Dilantin] phenytoin sodium extended Allergy Rash/Hives Verified 09/13/23 15:05 [From Dilantin] wheat Allergy Unknown Verified 09/13/23 19:04 Physical Exam Vitals: Vital Signs Temp Pulse Pulse Resp BP BP BP 09/14/23 07:00 97.7 F 54 L 16 104/62 09/14/23 02:00 97.8 F 49 L 14 92/51 09/13/23 21:13 97.5 F L 51 L 18 117/64 09/13/23 20:36 97.8 F 55 L 16 99/69 09/13/23 20:00 53 L 18 104/65 09/13/23 19:00 55 L 18 103/65 09/13/23 18:00 55 L 16 101/63 09/13/23 17:00 58 L 15 114/70 09/13/23 16:00 67 16 116/75 09/13/23 15:11 57 L 18 108/70 09/13/23 11:17 97.3 F L 93 18 136/70 Pulse Ox 09/14/23 07:00 100 09/14/23 02:00 98 09/13/23 21:13 100 09/13/23 20:36 98 09/13/23 20:00 98 09/13/23 19:00 98 09/13/23 18:00 98 09/13/23 17:00 96 09/13/23 16:00 09/13/23 15:11 97 09/13/23 11:17 100 Intake and Output 09/13/23 09/14/23 09/14/23 22:59 06:59 14:59 Other: # Voids 1 4 Weight 56.699 kg Results 09/14/23 02:33 09/14/23 02:33 Cardiac Enzymes 09/13/23 09/13/23 09/13/23 Range/Units 11:31 11:31 15:21 AST 23 (17-59) U/L Troponin I <0.012 <0.012 (0.000-0.034) ng/mL 09/13/23 09/14/23 Range/Units 18:07 02:33 AST 19 (17-59) U/L Troponin I <0.012 (0.000-0.034) ng/mL Coagulation 09/13/23 Range/Units 11:31 PT 13.0 H (10.0-12.5) sec APTT 27.2 (22.0-30.0) sec CBC 09/13/23 09/14/23 Range/Units 11:31 02:33 WBC 3.1 L 4.7 (3.8-10.6) k/uL RBC 4.51 4.02 L (4.30-5.90) m/uL Hgb 15.1 13.7 (13.0-17.5) gm/dL Hct 46.4 41.0 (39.0-53.0) % Plt Count 119 L 109 L (150-450) k/uL Comprehensive Metabolic Panel 09/13/23 09/14/23 Range/Units 11:31 02:33 Sodium 137 136 L (137-145) mmol/L Potassium 4.2 4.2 (3.5-5.1) mmol/L Chloride 103 105 (98-107) mmol/L Carbon Dioxide 26 28 (22-30) mmol/L BUN 12 15 (9-20) mg/dL Creatinine 0.76 0.86 (0.66-1.25) mg/dL Glucose 175 H 84 (74-99) mg/dL Calcium 9.6 9.2 (8.4-10.2) mg/dL AST 23 19 (17-59) U/L ALT 15 13 (4-49) U/L Alkaline Phosphatase 70 72 (38-126) U/L Total Protein 6.8 5.6 L (6.3-8.2) g/dL Albumin 4.6 3.6 (3.5-5.0) g/dL Current Medications Generic Name Dose Route Start Last Admin Trade Name Freq PRN Reason Stop Dose Admin Aspirin 81 mg 09/14/23 09:00 Aspirin 81 Mg PO DAILY STU Diazepam 5 mg 09/13/23 16:05 09/13/23 19:01 Diazepam 5 Mg Tab PO 5 mg Q8H PRN Administration Anxiety Iopamidol 30 ml 09/13/23 14:54 Iopamidol Contrast (Oral Use) Vial PO 09/14/23 14:[address] Scan Nitroglycerin 0.4 mg 09/13/23 14:29 Nitroglycerin Sl Tabs 0.4 Mg Tab SUBLINGUAL Q5M PRN Chest Pain Pantoprazole Sodium 40 mg 09/13/23 15:00 09/13/23 22:21 Pantoprazole 40 Mg/10 Ml Vial IVP 40 mg BID STU Administration Tramadol HCl 50 mg 09/13/23 16:05 09/13/23 19:01 Tramadol 50 Mg Tab PO 50 mg TID PRN Administration Pain Intake and Output 09/13/23 09/14/23 09/14/23 22:59 06:59 14:59 Other: # Voids 1 4 Weight 56.699 kg 09/14/23 02:33 09/14/23 02:33
[2023-09-14 14:31] VITALS: BP 110/66; RESP 17; TEMP 98.2
--- NOTE | 2023-09-14 18:14 | CA ---
Transthoracic Echo Report Name: Alan Moreno Age: 57 Gender: M : 1965 Exam Date: 09/14/2023 10:53 Exam Location: [place] [facility] Ht (in): 69 Wt (lb): 125 Ordering Physician: Angi Cuevas Attending/Referring Phys: [id number], Faith Raw Sampler Luci Purdy RDCS Procedure CPT: Indications: LV function, CP Cardiac Hx: Technical Quality: Fair Contrast 1: Total Dose (mL): Contrast 2: Total Dose (mL): MEASUREMENTS (Male / Female) Normal Values 2D ECHO LV Diastolic Diameter PLAX 4.5 cm 4.2 - 5.9 / 3.9 - 5.3 cm LV Systolic Diameter PLAX 2.9 cm IVS Diastolic Thickness 0.7 cm 0.6 - 1.0 / 0.6 - 0.9 cm LVPW Diastolic Thickness 0.7 cm 0.6 - 1.0 / 0.6 - 0.9 cm LV Relative Wall Thickness 0.3 LVOT Diameter 2.0 cm LV Diastolic Volume MOD 4C 99.5 cm??? LV Systolic Volume MOD 4C 32.5 cm??? LV Ejection Fraction MOD 4C 67.3 % LV Cardiac Index MOD 4C 2517.1 cm???/min???m??? LV Diastolic Length 4C 8.1 cm LV Systolic Length 4C 6.5 cm DOPPLER AV Peak Velocity 106.1 cm/s AV Peak Gradient 4.5 mmHg AV Mean Velocity 77.1 cm/s AV Mean Gradient 2.6 mmHg AV Velocity Time Integral 24.0 cm LVOT Peak Velocity 100.7 cm/s LVOT Peak Gradient 4.1 mmHg LVOT Velocity Time Integral 18.5 cm LVOT Stroke Volume 55.5 cm??? LVOT Stroke Volume Index 32.8 ml/m??? LVOT Cardiac Index 2086.2 cm???/min???m??? AV Area Cont Eq vti 2.3 cm??? AV Area Cont Eq pk 2.8 cm??? MV Area PHT 3.3 cm??? Mitral E Point Velocity 57.8 cm/s Mitral A Point Velocity 45.4 cm/s Mitral E to A Ratio 1.3 MV Deceleration Time 232.5 ms TR Peak Velocity 263.0 cm/s TR Peak Gradient 27.7 mmHg Right Atrial Pressure 5.0 mmHg Pulmonary Artery Systolic Pressu 32.7 mmHg Right Ventricular Systolic Press 32.7 mmHg PV Peak Velocity 73.3 cm/s PV Peak Gradient 2.1 mmHg FINDINGS Left Ventricle Left ventricular ejection fraction is estimated at 60-65 %. Left ventricular cavity size normal. Left ventricular wall thickness normal. No obvious regional wall motion abnormalities. Right Ventricle Normal right ventricular size and function. Right ventricular systolic pressure within normal limits. Right Atrium Normal right atrial size. Left Atrium Normal left atrial size. Mitral Valve Structurally normal mitral valve. No mitral stenosis, regurgitation or prolapse. Aortic Valve Trileaflet aortic valve. No aortic valve stenosis or regurgitation. Tricuspid Valve Structurally normal tricuspid valve. No tricuspid stenosis. Mild tricuspid regurgitation. Pulmonic Valve Structurally normal pulmonic valve. No pulmonic stenosis. Trace pulmonic regurgitation. Pericardium No pericardial effusion. Aorta Normal size aortic root and proximal ascending aorta. CONCLUSIONS Preserved LV size and systolic function Previewed by: Dr. Prateek Braun MD (Electronically Signed) Final Date: 14 September 2023 18:13
== END 2023-09-14 18:48 | disposition home or self-care (01) ==
LOC: EC 11:10 → 6NMEDSUR 14:30
PROVIDERS: ADMIT Internal Medicine; ATTEND Internal Medicine
DX: R07.89 Other chest pain (principal); R74.8 Abnormal levels of other serum enzymes; R10.13 Epigastric pain; R11.0 Nausea; J45.909 Unspecified asthma, uncomplicated; G40.909 Epilepsy, unspecified, not intractable, without status epilepticus; F10.21 Alcohol dependence, in remission; F11.21 Opioid dependence, in remission; D69.6 Thrombocytopenia, unspecified; D72.819 Decreased white blood cell count, unspecified; M19.90 Unspecified osteoarthritis, unspecified site; F41.9 Anxiety disorder, unspecified; R42 Dizziness and giddiness; M54.9 Dorsalgia, unspecified; F12.90 Cannabis use, unspecified, uncomplicated; F17.210 Nicotine dependence, cigarettes, uncomplicated; Z91.011 Allergy to milk products; Z91.018 Allergy to other foods; Z88.5 Allergy status to narcotic agent; Z88.8 Allergy status to other drugs, medicaments and biological substances; Z91.030 Bee allergy status; Z86.14 Personal history of Methicillin resistant Staphylococcus aureus infection; Z87.19 Personal history of other diseases of the digestive system; Z82.49 Family history of ischemic heart disease and other diseases of the circulatory system
CPT/HCPCS: 96376 ×2; 96374; 99285; 36415; 94760; 93005; 93306; 85379; 80061; 80053 ×2; 82150 ×2; 83690 ×2; 83735; 84484; 85025 ×2; 85610; 85730; 80306; 71046; 74176; G0378 ×2; G0480; J2470 ×2; 80320